=== PATIENT | female | born 1965 | race Caucasian/White ===

== ENCOUNTER 2018-03-09 14:17 | Emergency (ER) | payer OTHER ==
[2018-03-09] MEDS ORDERED: PROPARACAINE 0.5% 15 ML OPHT DROP ONE (15:55)
[2018-03-09] MEDS ORDERED: FLUORESCEIN SOD/BENOXINATE HCL 20 DROPS/ML OPHT.BTL ONE (15:55)
--- NOTE | 2018-03-09 16:10 | EDPHY ---
HPI/HX/ROS/PE/MDM Narrative: CHIEF COMPLAINT: Left eye pain and redness HISTORY OF PRESENT ILLNESS: The patient is a 52 y/o female complaining of left eye burning pain, redness, and irritation, onset last night. This morning her left eye was swollen and more sensitive to light. She decided to present to her PCP at [facility] who questioned a corneal abrasion and sent her to the emergency department. Currently there is a sensation of a piece of sand in her left eye. Does wear contacts; currently wearing glasses. Denies double vision, history of Glaucoma or trauma to eye. Denies visual field defect, denies shimmery or flashes of light. No fever, chills, chest pain, shortness of breath, palpitations, vomiting, diarrhea, urinary complaints, headache, lightheadedness. REVIEW OF SYSTEMS: Aside from elements discussed in the HPI, a comprehensive 10-point review of systems was reviewed and is negative. PAST MEDICAL HISTORY: Denies SOCIAL HISTORY: at bedside, lives in [place], employed at , PCP is Dr. Vásquez at [facility] VITAL SIGNS: Reviewed by me GENERAL: Well-developed, well-nourished, resting comfortably in no respiratory distress. HEENT: Atraumatic. Eyes: left eye injected slightly. Mouth: moist mucous membranes. No erythema or lesions. Neck: supple with no adenopathy. Visual Acuity: Both 20/25; noted from Nurse's notes. Focused examination of the left eye. Eyelid: No edema, erythema or swelling. Pupils: Round and reactive to light EOMI Conjunctivae: Mild diffuse injection without discharge. Cornea: Exam with fluorescein shows medial upper quadrant 2mm oval punctate area of flourescein uptake that is most likely corneal abrasion or small corneal ulceration Anterior chamber: Normal, no hyphema or hypopyon. No cell or flare. Skin: No proptosis, no periorbital erythema or swelling, no vesicles. Portions of this note were transcribed by a medical surgery nurse. I personally performed a history, physical exam, medical decision making, and confirmed accuracy of information the transcribed note. ED Course: The patient is a 52 y/o female presenting with pain in her left eye, onset last night. Fluorescein exam will be preformed. 1619: Flurox administered. Fluorescein exam reveals medial upper quadrant 2mm oval punctate that is most likely a corneal abrasion or corneal ulceration. I have prescribed the patient Ofloxacin and advised her to follow up with an digital artist. Return precautions provided; patient is comfortable with this plan. MDM: Diff dx considered included conjunctivitis, corneal abrasion, iritis, corneal ulceration, open globe, dislocated lense, periorbital cellulitis, orbital cellulitis. General Time Seen by Provider: 03/09/18 16:05 Initial Vital Signs: Initial Vital Signs Temperature (C) 37 C 03/09/18 14:21 Heart Rate 81 03/09/18 14:21 Respiratory Rate 16 03/09/18 14:21 Blood Pressure 135/93 H 03/09/18 14:21 O2 Sat (%) 97 03/09/18 14:21 O2 Delivery Mode Room Air Allergies/Adverse Reactions: codeine Allergy (Verified 03/09/18 14:24) Home Medications: Medication Instructions Recorded Ofloxacin 0.3% [Ocuflox 0.3%] 1 - 2 drops LEFTEYE Q4 #1 opht.btl 03/09/18 Topiramate 03/09/18 Departure - Departure Disposition: Home, Routine, Self-Care Clinical Impression: Corneal ulcer of left eye Corneal abrasion Qualifiers: Encounter type: initial encounter Laterality: left Qualified Code(s): S05.02XA - Injury of conjunctiva and corneal abrasion without foreign body, left eye, initial encounter Condition: Good Instructions: Corneal Abrasion (ED), Corneal Ulcer (ED) Additional Instructions: Use Ofloxacin eye drops as prescribed. For the first 24 hours you need to use these every 2 hours. After this you can use the drops every 4-6 hours. Do not wear your contacts until you have finished the Ofloxacin prescription. I recommend Ibuprofen (Motrin,Advil) or Tylenol for pain and anti-inflammatory effects. Your dose is: Ibuprofen 600mg every 6-8 hours with food. OR Tylenol 650mg ever 6 hours Follow up with an digital artist in the next week. Follow-up with your primary doctor within 72 hours. Return to the Emergency Department for severe vision changes, fever or other concerns. Referrals: Cherri Jimenez MD [Medical Doctor] - As per Instructions Prescriptions: Ofloxacin 0.3% [Ocuflox 0.3%] 1 - 2 drops LEFTEYE Q4 #1 opht.btl Report Scribed for: Susi Burdick Report Scribed by: Chikis Guillen Date of Report: 03/09/18 Time of Report: 16:11
[2018-03-09 16:42] VITALS: BP 131/74
== END 2018-03-09 16:41 | disposition home or self-care (01) ==
DX: S05.02XA Injury of conjunctiva and corneal abrasion without foreign body, left eye, initial encounter (principal); H16.002 Unspecified corneal ulcer, left eye; X58.XXXA Exposure to other specified factors, initial encounter